=== PATIENT | female | born 2000 ===

== ENCOUNTER → 2018-04-08 | Outpatient (CLI) | payer OTHER ==
--- NOTE | 2018-04-08 15:05 | WOMENS IMAGING REPORT ---
EXAM DESCRIPTION: U/S BREAST UNILAT LIMITED COMPLETED DATE/TIME: 04/08/2018 2:19 pm REASON FOR STUDY: N63.10, UNSPECIFIED LUMP IN RIGHT BREAST N63.10 UNSPECIFIED LUMP IN THE RIGHT SABIHA AST, UNSPECIFIED MOISES COMPARISON: None. TECHNIQUE: Real-time and static grayscale imaging performed of the right breast targeted to the area of clinical/mammographic concern. Selected color Doppler images recorded. LIMITATIONS: None. FINDINGS: In the 10 to 11 o'clock position there is a 1.4 x 0.9 x 1.2 cm well-circumscribed hypoecho ic lesion with echogenic capsule typical of a fibroadenoma. IMPRESSION: Probable benign fibroadenoma. BIRAD: 3 Probably benign finding. Initial short-interval follow-up suggested. RECOMMENDATION: RECOMMENDED FOLLOW-UP: Six-month ultrasound follow-up. COMMENT: The [employer] ([employer]) has developed recommendations for screening MRI of the breasts in certain patient populations, to be used in conjunction with mammography. Breast MRI s urveillance may be appropriate for women with more than 20% lifetime risk of developing breast cancer as determined by genetic testing, significant family history of the disease, or history of mantle r adiation for Hodgkins Disease. [employer] Practice Guidelines 2008. TECHNICAL DOCUMENTATION: JOB ID: [id number] [employer]- All Rights Reserved Reading location - IP/workstation name: [email or web address]
== END ==
LOC: WI 13:33
PROVIDERS: ATTEND Physician Assistant
DX: D24.1 Benign neoplasm of right breast (principal)
CPT/HCPCS: 76642